=== PATIENT | female | born 1975 | race Caucasian/White ===

== ENCOUNTER → 2018-11-21 | Outpatient (CLI) | payer OTHER ==
--- NOTE | 2018-11-21 12:29 | XR ---
EXAMINATION TYPE: XR shoulder complete RT DATE OF EXAM: 11/21/2018 CLINICAL HISTORY: Right shoulder pain after injury. TECHNIQUE: Three views of the right shoulder are obtained. COMPARISON: None. FINDINGS: There is no acute fracture/dislocation evident in the right shoulder. Mild to moderate yousif rowing acromioclavicular joint without significant spurring. Distal acromion morphology unremarkable . Glenohumeral joint maintained. The visualized ribs are intact and unremarkable. IMPRESSION: There is no acute fracture or dislocation in the right shoulder.
--- NOTE | 2018-11-21 12:30 | XR ---
EXAMINATION TYPE: XR cervical spine comp DATE OF EXAM: 11/21/2018 TECHNIQUE: Frontal, lateral, oblique, and open mouth view of the cervical spine are obtained. HISTORY: S43.461A, S16.1XXA sprain injury with pain. COMPARISON: None FINDINGS: The cervical spine is visualized in its entirety from C1 thru the top of T1 level, it is s traightened in alignment without evidence of acute fracture or dislocation. The pre-vertebral soft t issue appears within normal limits. The C1-C2 articulation is within normal limits on the open mouth view. Vertebral body heights are maintained. There is mild disc space narrowing and anterior spurri ng C5-C6 level. There is mild disc space narrowing with moderate anterior spurring C6-C7 level. The o blique images are within normal limits. Overlying soft tissue is unremarkable. IMPRESSION: As above.
== END | disposition home or self-care (01) ==
LOC: RADXRMAIN 12:01
PROVIDERS: ATTEND Emergency Medicine
DX: M99.71 Connective tissue and disc stenosis of intervertebral foramina of cervical region (principal); S43.401A Unspecified sprain of right shoulder joint, initial encounter
CPT/HCPCS: 72050

== ENCOUNTER → 2018-12-02 | Outpatient (CLI) | payer OTHER ==
--- NOTE | 2018-12-02 23:40 | MR ---
EXAMINATION TYPE: MR shoulder RT wo con DATE OF EXAM: 12/02/2018 COMPARISON: HISTORY: no prior, right shoulder sprain after repetitive motion TECHNIQUE: Multiplanar, multisequence imaging of the right shoulder is performed without contrast. FINDINGS: There is shoulder joint effusion. There is fluid around the biceps tendon which appears intact. Subsc apularis tendon is intact. Glenoid anil appear intact. There is abnormal increased signal throughout a large area of the supraspinatus tendon near the great er tuberosity of the humerus. There is no retraction. There is no evidence of a fracture. There is spurring at the AC joint. There is mild subacromial join t space narrowing. There is spurring on the inferior acromion impinging on the supraspinatus tendon. IMPRESSION: Large rotator cuff tear without retraction of the supraspinatus tendon. Shoulder joint effusion consi stent with synovitis. No fracture. Hypertrophic degenerative changes with fluid at the AC joint.
== END | disposition home or self-care (01) ==
LOC: RADMRIMAIN 19:47
PROVIDERS: ATTEND Emergency Medicine
DX: S46.011D Strain of muscle(s) and tendon(s) of the rotator cuff of right shoulder, subsequent encounter (principal); S16.1XXD Strain of muscle, fascia and tendon at neck level, subsequent encounter

== ENCOUNTER → 2018-12-10 | Outpatient (CLI) | payer OTHER ==
[2018-12-10 12:23] LABS: Basophils % (A) 0 %; Eosinophils # (A) 0.1 k/uL (0-0.7); Eosinophils % (A) 1 %; HCT 46.1 % (34.0-46.0); HGB 15.8 gm/dL (11.4-16.0); Lymphocytes # (A) 2.3 k/uL (1.0-4.8); Lymphocytes % (A) 31 %; MCH 31.2 pg (25.0-35.0); MCHC 34.3 g/dL (31.0-37.0); MCV 90.8 fL (80.0-100.0); Mean Platelet Volume 6.6; Monocytes # (A) 0.4 k/uL (0-1.0); Monocytes % (A) 5 %; Neutrophils # (A) 4.5 k/uL (1.3-7.7); Neutrophils % (A) 61 %; Platelet Count 289 k/uL (150-450); RBC 5.08 m/uL (3.80-5.40); RDW 12.4 % (11.5-15.5); WBC 7.4 k/uL (3.8-10.6)
[2018-12-10 12:36] LABS: Potassium 4.7 mmol/L (3.5-5.1)
== END | disposition home or self-care (01) ==
LOC: LABPAT 10:54
PROVIDERS: ATTEND Orthopaedic Surgery
DX: Z01.810 Encounter for preprocedural cardiovascular examination (principal); Z01.812 Encounter for preprocedural laboratory examination
CPT/HCPCS: 36415; 80051; 85025; 93005

== ENCOUNTER → 2019-02-06 | Outpatient (CLI) | payer OTHER ==
[2019-02-06 10:52] LABS: Basophils # (A) 0.1 k/uL (0-0.2); Basophils % (A) 1 %; Eosinophils # (A) 0.1 k/uL (0-0.7); Eosinophils % (A) 2 %; HGB 15.1 gm/dL (11.4-16.0); Lymphocytes # (A) 2.1 k/uL (1.0-4.8); Lymphocytes % (A) 24 %; MCH 31.2 pg (25.0-35.0); MCHC 33.5 g/dL (31.0-37.0); MCV 93.2 fL (80.0-100.0); Mean Platelet Volume 6.4; Monocytes # (A) 0.4 k/uL (0-1.0); Monocytes % (A) 4 %; Neutrophils # (A) 5.8 k/uL (1.3-7.7); Neutrophils % (A) 68 %; Platelet Count 294 k/uL (150-450); RBC 4.83 m/uL (3.80-5.40); RDW 12.4 % (11.5-15.5); WBC 8.5 k/uL (3.8-10.6)
[2019-02-06 11:34] LABS: Potassium 4.5 mmol/L (3.5-5.1)
== END | disposition home or self-care (01) ==
LOC: LABPAT 10:26
PROVIDERS: ATTEND Orthopaedic Surgery
DX: Z01.812 Encounter for preprocedural laboratory examination (principal); M75.41 Impingement syndrome of right shoulder
CPT/HCPCS: 80051; 85025

== ENCOUNTER 2019-02-18 11:43 | Day surgery (SDC) | payer OTHER ==
[2019-02-14 09:00] VITALS: BMI 31.2
--- NOTE | 2019-02-17 09:55 | HP ---
HISTORY AND PHYSICAL CHIEF COMPLAINT: Right shoulder pain. 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 She notes ever since she is having a difficult time with overhead activity and at night. She has tried medications without much relief. She denies significant previous problems. PAST MEDICAL HISTORY: Negative. PAST SURGICAL HISTORY: Negative. CURRENT MEDICATIONS: [place]. ALLERGIES TO: She has allergies to BACTRIM. FAMILY HISTORY: Significant for cancer, diabetes, and hypertension. SOCIAL HISTORY: Significant for 1 pack per day tobacco use. REVIEW OF SYSTEMS: Sixteen-point review of systems otherwise reviewed and is noncontributory. PHYSICAL EXAMINATION: On examination, the patient is approximately 5 feet 4 inches, 174 pounds of mesomorphic habitus. HEENT exam is nonfocal. Neck is supple. On the right shoulder, she is tender about the anterior subacromial space. Mild subacromial crepitus is noted. Active range of motion forward elevation 95 degrees, external rotation with arm at side 50 degrees, internal rotation to L3. Passively, I am able to forward elevate her to 160 degrees. Motor strength is 4+/5 for external rotation with arm at the side, 4+/5 for abduction. Impingement test, Neer test and Speed tests are positive. Her distal neurovascular exam appears intact in the right upper extremity. X-rays of the right shoulder obtained in the office show maintained humeral head to acromial distance. A type 2 acromion is noted. MRI report 12/02/2018 by report shows evidence of a large supraspinatus tendon tear without significant retraction. IMPRESSION: Acute right rotator cuff tear-symptomatic. RECOMMENDATIONS: I talked to the patient at length regarding her condition and treatment options. At this point, she is quite symptomatic after this acute injury and opts to proceed with surgery. We will plan to proceed with arthroscopic evaluation with probable subacromial decompression and rotator cuff repair. We will likely perform that as an outpatient procedure. Risks and benefits were discussed at length in layman's terms. MMODL / IJN: [id number] /
[~2019-02-18 11:43] MED LIST: DEXAMETHASONE SOD PHOSPHATE 10 MG/ML 1 ML VIAL IV ONE; HYDROmorphone 0.5 MG/0.5 ML SYRINGE IVP PRN; LACTATED RINGERS 1,000 ML IV SCH; MIDAZOLAM 2 MG/2 ML VIAL IV PRN; ONDANSETRON 4 MG/2 ML VIAL IVP ONE; SCOPOLAMINE 1.5MG/72HR PATCH TRANSDERM ONE
[2019-02-18] MEDS ORDERED: fentaNYL (PF) 50 MCG/ML 2 ML AMP IVP ONE (15:00)
[2019-02-18] MEDS ORDERED: MIDAZOLAM 2 MG/2 ML VIAL ONE (15:30)
[2019-02-18] MEDS ORDERED: PROPOFOL 10 MG/ML 20 ML VIAL IV ONE (15:30)
[2019-02-18] MEDS ORDERED: PHENYLEPHRINE-0.9% NACL SYG 1 MG/10 ML SYRINGE ONE (15:30)
[2019-02-18] MEDS ORDERED: SUCCINYLCHOLINE CHLORIDE 100 MG/5 ML SYR IV ONE (15:30)
[2019-02-18] MEDS ORDERED: LIDOCAINE 1% INJ 10MG/ML (20 ML MDV) ONE (15:30)
[2019-02-18] MEDS ORDERED: ROPIVACAINE 5 MG/ML 30 ML VIAL ONE (15:30)
[2019-02-18] MEDS ORDERED: ePHEDrine SULFATE/0.9% NACL/PF 50 MG/5 ML SYRINGE IV ONE (15:30)
[2019-02-18] MEDS ORDERED: fentaNYL (PF) 50 MCG/ML 2 ML AMP ONE (15:30)
[2019-02-18] MEDS ORDERED: LACTATED RINGERS 1,000 ML IV ONE ×2 (15:53→17:54)
[2019-02-18] MEDS ORDERED: EPINEPHrine 4 MG in SODIUM CHLORIDE 0.9% IRRIGATIO 3,000 ML IRRIGATION ONE (15:59)
--- NOTE | 2019-02-18 17:12 | P.OP ---
Date of Procedure: 02/18/19 Preoperative Diagnosis: Right shoulder impingement/symptomatic rotator cuff tear/acromioclavicular joint arthritis Postoperative Diagnosis: Same Procedure(s) Performed: Right shoulder arthroscopic subacromial decompression/distal clavicular resection/rotator cuff repair Implants: Arthrex swivel lock 5.5 mm anchor 1 Anesthesia: david MONTGOMERY Surgeon: Can Goldman Vice President Of Brand Management #1: Raffi Maravilla Estimated Blood Loss (ml): 10 Pathology: none sent Condition: stable Disposition: PACU Indications for Procedure: The patient is a 44-year-old female who presents with persistent/progressive right shoulder pain after a previous injury. A discussion of the risks and benefits of operative intervention versus continued conservative measures was made with patient. She opted to proceed with surgery. Operative risks to include infection, neurovascular injury, development of blood clots, possible incomplete resolution of symptoms, possible worsening symptoms and need for subsequent procedures was discussed. Informed consent was obtained. Operative Findings: As below Description of Procedure: The patient was brought to the operating room, and after induction of general a nesthesia was placed in a beachchair position. A preoperative interscalene block was placed for postoperative analgesia. I examined the right shoulder. There was no gross block to passive motion or gross glenohumeral instability. The right upper extremity was prepped and draped in normal fashion. The bony outlines the acromion, distal clavicle, and coracoid process were outlined with a skin marker. The glenohumeral joint was inflated with 50 mL of saline utilizing a spinal needle from posterior approach. A posterior portal was made through a 5 mm skin incision 1 cm medial and inferior to the posterior lateral border time. A blunt trocar was used to easily into the joint. Diagnostic arthroscopy was performed. An anterior portal was made just lateral to the coracoid process entering the joint above the subscapularis tendon. The subscapularis tendon appeared to be intact. Anterior labrum was intact. The inferior recess was inspected. The posterior labrum was intact. The biceps was then inspected and was felt to be intact. On inspection the rotator cuff, a partial thickness tear involving the anterior aspect the supraspinatus was noted on the articular surface. This was debrided with a motorized shaver. The posterior portion of the cuff appeared to be intact. The arthroscope was placed into the subacromial space. The soft tissue on the undersurface of the acromion was debrided with a motorized shaver and electrocautery clearly defining the anterior medial and lateral borders as well as the distal clavicle. An anterior inferior acromioplasty was performed with a motorized jasbir starting anterolateral, then extending this posteriorly, then extending this medially. I converted to a flat acromion and this was verified in the posterior and lateral viewing portals. The distal 4 mm the clavicle was resected with a motorized jasbir. Attention was then paid towards the rotator cuff. A high-grade partial- thickness tear involving the anterior aspect of the supraspinatus was noted on the bursal surface. This was taken down and the cuff was easily mobilized back to the greater tuberosity. The tuberosity was lightly decorticating with a motorized jasbir down to a bleeding bony surface. #2 fiber tape was passed through the rotator cuff and attached laterally through a 5.5 mm swivel lock anchor after appropriate tension was placed. There was good compression at the footprint. The patient was then awoken from general anesthesia and transferred to recovery room in good condition. Blood loss was estimated at 10 mL. No complications were incurred. Sponge and needle counts were correct in the case. Shaka BARBOSA assisted and the major components of the case to include arm positioning, anchor placement, and rotator cuff repair.
[2019-02-18 17:16] VITALS: TEMP 97.2
[2019-02-18 18:05] VITALS: RESP 18
--- NOTE | 2019-02-18 18:57 | P.ANPRN ---
Procedure Note - Anesthesia - Nerve Block Performed Right Interscalene Single Time Out Performed: Yes Date of Procedure: 02/18/19 Procedure Start Time: 14:59 Procedure Stop Time: 15:08 Location of Patient Procedure: PreOp Indication: Acute Post-Operative Pain, Requested by Surgeon Specifically requested for management of pain by DrEmily: Can Goldman Sedation Type: Sedate with meaningful contact maintained Preparation: Sterile Prep Position: Supine Catheter: None Needle Types: Pajunk Needle Gauge: 21 Ultrasound used to visualize needle placement: Yes Ultrasound used to observe medication spread: Yes Injectate: 0.5% Ropivacaine (see comment for volume) (20 cc) Blood Aspirated: No Pain Paresthesia on Injection Noted: No Resistance on Injection: Normal Image Stored and Saved: Yes Events: Uneventful and Well Tolerated
[2019-02-18 19:00] VITALS: BP 104/66; PULSE 76
== END 2019-02-18 19:00 | disposition home or self-care (01) ==
LOC: OR 11:43
PROVIDERS: ATTEND Orthopaedic Surgery
DX: S46.011A Strain of muscle(s) and tendon(s) of the rotator cuff of right shoulder, initial encounter (principal); M19.011 Primary osteoarthritis, right shoulder; M75.41 Impingement syndrome of right shoulder; E78.5 Hyperlipidemia, unspecified; F17.210 Nicotine dependence, cigarettes, uncomplicated; Z88.2 Allergy status to sulfonamides; Z91.030 Bee allergy status; Z90.710 Acquired absence of both cervix and uterus; Z79.899 Other long term (current) drug therapy; Z80.9 Family history of malignant neoplasm, unspecified; Z83.3 Family history of diabetes mellitus; Z82.49 Family history of ischemic heart disease and other diseases of the circulatory system; X50.9XXA Other and unspecified overexertion or strenuous movements or postures, initial encounter; Y99.0 Civilian activity done for income or pay
CPT/HCPCS: 29827; 29824; 29826; 64415; 76942; C1713 ×2; C1894; J0171; J2250; J1100; J0690; J2405; J2001; J3010; J2795; J2370; J0330; J2704; J1170

== ENCOUNTER 2019-04-07 08:31 | Day surgery (SDC) | payer OTHER ==
[2019-04-01 15:37] VITALS: BMI 31.6
[~2019-04-07 08:31] MED LIST changes: -DEXAMETHASONE SOD PHOSPHATE 10 MG/ML 1 ML VIAL IV ONE; -HYDROmorphone 0.5 MG/0.5 ML SYRINGE IVP PRN; +LIDOCAINE 1% 20 ML VIAL (10MG/ML) FOR IV START INTRADERMA PRN; -MIDAZOLAM 2 MG/2 ML VIAL IV PRN; -ONDANSETRON 4 MG/2 ML VIAL IVP ONE; -SCOPOLAMINE 1.5MG/72HR PATCH TRANSDERM ONE
[2019-04-07 08:53] VITALS: TEMP 98.7
[2019-04-07] MEDS ORDERED: PROPOFOL 10 MG/ML 20 ML VIAL IV ONE (09:28)
--- NOTE | 2019-04-07 10:05 | P.PCN ---
Date of Procedure: 04/07/19 Description of Procedure: BRIEF HISTORY: Patient is a 44-year-old pleasant female scheduled for an elective colonoscopy as a part of screening for malignant neoplasm of the colon. She denies any change in bowel habits, abdominal pain or blood per rectum. She does note a family history of colon cancer in her maternal grandfather in his 40s and her paternal grandmother in her 70s. No prior colonoscopy reported. PROCEDURE PERFORMED: Colonoscopy with polypectomy. PREOPERATIVE DIAGNOSIS: Screening for malignant neoplasm, patient does report a history of colon cancer in her grandmother and grandfather, no prior colonoscopies. ESTIMATED BLOOD LOSS: Minimal. IV sedation per Anesthesia. PROCEDURE: After informed consent was obtained, the patient, was brought into the endoscopy unit. IV sedation was administered by Anesthesia under continuous monitoring. Digital rectal examination was normal. Initially the Olympus CF-190 flexible video colonoscope was then inserted in the rectum, gradually advanced into the cecum without any difficulty. Careful examination was performed as the scope was gradually being withdrawn. Ileocecal valve and the appendiceal orifice were visualized and appeared normal. Prep was excellent. Mucosa of the cecum, ascending colon, transverse colon, descending colon, sigmoid colon, and rectum appeared normal. 2 diminutive polyps one measuring 3 mm and one 2 mm removed with cold forceps from the hepatic flexure. 2 diminutive polyps measuring 1-2 mm removed from the transverse colon with cold forcep polypectomy. 2 diminutive polyps measuring 1 mm in size each removed from the splenic flexure with cold forcep polypectomy. 2 diminutive polyps measuring 2 and 3 mm removed from the rectum with cold forcep polypectomy. A few diminutive diverticula noted in the left colon. Retroflexion was performed in the rectum and no lesions were seen. The patient tolerated the procedure well. IMPRESSION: Removal of 8 diminutive polyps (suspicion is that some of these are hyperplastic polyps, please see body of the location and size of polyps) all removed with cold forceps. Mild scattered left colonic diverticulosis. RECOMMENDATIONS: Findings of this examination were discussed with the patient and her . Okay to resume diet. Okay to resume medications. 2 repeat colonoscopy in 3-5 years pending pathology from polypectomies and given patient's family history of colon cancer. Await pathology from biopsies..
[2019-04-07 10:32] VITALS: BP 120/80; PULSE 63; RESP 18
== END 2019-04-07 10:30 | disposition home or self-care (01) ==
LOC: ORWHC2ENDO 08:31
PROVIDERS: ATTEND Internal Medicine
DX: Z12.11 Encounter for screening for malignant neoplasm of colon (principal); D12.8 Benign neoplasm of rectum; K63.5 Polyp of colon; K57.30 Diverticulosis of large intestine without perforation or abscess without bleeding; E78.5 Hyperlipidemia, unspecified; F17.200 Nicotine dependence, unspecified, uncomplicated; M19.90 Unspecified osteoarthritis, unspecified site; Z90.710 Acquired absence of both cervix and uterus; Z80.0 Family history of malignant neoplasm of digestive organs; Z88.2 Allergy status to sulfonamides; Z88.1 Allergy status to other antibiotic agents; Z91.048 Other nonmedicinal substance allergy status
CPT/HCPCS: 45380; J2704; 88305

== ENCOUNTER → 2019-05-20 | Outpatient (CLI) | payer OTHER ==
--- NOTE | 2019-05-29 13:28 | MM ---
Reason for exam: screening (asymptomatic). Last mammogram was performed 3 years and 6 months ago. History: Patient is postmenopausal. Family history of breast cancer in maternal aunt at age 50. Physical Findings: A clinical breast exam by your physician is recommended on an annual basis and results should be correlated with mammographic findings. MG Screening Mammo w CAD Bilateral CC and MLO view(s) were taken. Prior study comparison: November 10, 2015, mammogram, performed at [facility]. There are scattered fibroglandular densities. No significant changes when compared with prior studies. ASSESSMENT: Negative, BI-RAD 1 RECOMMENDATION: Routine screening mammogram of both breasts in 1 year.
== END | disposition home or self-care (01) ==
LOC: RADMAMWWP 14:33
PROVIDERS: ATTEND Family Medicine
DX: Z12.31 Encounter for screening mammogram for malignant neoplasm of breast (principal)
CPT/HCPCS: 77067

== ENCOUNTER 2024-02-27 09:13 | Day surgery (SDC) | payer OTHER ==
[2024-02-27] MEDS: IV FLUID CONTINUATION 1,000 ML IV ONE (09:34)
[2024-02-27 09:38] VITALS: TEMP 97
[2024-02-27] MEDS: LACTATED RINGERS 1,000 ML IV SCH (09:47)
[2024-02-27] MEDS ORDERED: PROPOFOL 10 MG/ML 20 ML VIAL IV ONE (10:14)
--- NOTE | 2024-02-27 10:37 | P.PCN ---
Date of Procedure: 02/27/24 Procedure(s) Performed: BRIEF HISTORY: Patient is a 49-year-old pleasant white female scheduled for an elective colonoscopy as a part of evaluation by history of colon polyps and family history of colon cancer. Dad was diagnosed with colon cancer at age 65 and maternal grandfather at age 70. PROCEDURE PERFORMED: Colonoscopy with biopsy. PREOPERATIVE DIAGNOSIS: History of colon polyps and family history of colon cancer. IV sedation per Anesthesia. PROCEDURE: After informed consent was obtained, the patient, was brought into the endoscopy unit. IV sedation was administered by Anesthesia under continuous monitoring. Digital rectal examination was normal. Initially the Olympus CF-160 flexible video colonoscope was then inserted in the rectum, gradually advanced into the cecum without any difficulty. Careful examination was performed as the scope was gradually being withdrawn. Ileocecal valve and the appendiceal orifice were visualized and appeared normal. Prep was excellent. Mucosa of the cecum, ascending colon, transverse colon, descending colon, sigmoid colon, and rectum appeared normal. In the rectum there was a 5 mm polyp that was removed by cold biopsy. Retroflexion was performed in the rectum and no lesions were seen. The patient tolerated the procedure well. IMPRESSION: 4 mm rectal polyp status post cold biopsy Rest of the colon appeared normal RECOMMENDATIONS: Findings of this examination were discussed with the patient as well as her family. She was advised to follow with the biopsy results. Recommended repeat colonoscopy in 5 years because of the family history of colon cancer
[2024-02-27 10:46] VITALS: RESP 16
[2024-02-27 10:59] VITALS: BP 116/67; PULSE 58
== END 2024-02-27 11:09 | disposition home or self-care (01) ==
LOC: ORWHC2ENDO 09:13
PROVIDERS: ATTEND Internal Medicine Gastroenterology
CPT/HCPCS: 45380; 88305